=== PATIENT | male | born 1970 ===

== ENCOUNTER 2017-05-25 15:25 | Emergency (ER) | payer OTHER ==
[2017-05-25 15:51] VITALS: BP 135/85; PULSE 76; RESP 20; TEMP 98.3; O2SAT 100
--- NOTE | 2017-05-25 16:23 | ED PDOC ---
HPI: Wound Care - HPI Time Seen by Provider: 05/25/17 15:54 Chief Complaint (Nursing): Wound Check Chief Complaint (Provider): Dressing Change History Per: Patient History Of Present Illness: 46 year old male presents to the ED for a dressing change. The patient states that he had trigger finger surgery performed(done by Dr. Ray) on his right middle finger and was advised to change the dressing today. He states that e was unable to do so on his own as he only has 1 hand and so he came in to the ED. Patient offers no medical complaints. PMD: Non [facility] Provider, Exam Limitations: no limitations Location Of Injury: Right: Hand (middle finger) Past Medical History Reviewed: Historical Data, Nursing Documentation, Vital Signs Vital Signs: Last Vital Signs Temp 98.3 F 05/25/17 15:46 Pulse 76 05/25/17 15:46 Resp 20 05/25/17 15:46 BP 135/85 05/25/17 15:46 Pulse Ox 100 05/25/17 15:46 - Medical History PMH: Anxiety, Back Problems, Depression, Diabetes (Prediabetic), HTN, Sleep Apnea Denies: Hepatitis, HIV, Seizures, Sexually Transmitted Disease - Surgical History Surgical History: Appendectomy - Family History Family History: States: Unknown Family Hx, Hypertension - Social History Current smoker - smoking cessation education provided: Yes Ex-Smoker (has not smoked in the last 12 months): Yes - Immunization History Hx Tetanus Toxoid Vaccination: Yes (2012) Hx Influenza Vaccination: Yes (2013) Hx Pneumococcal Vaccination: No - Home Medications Home Medications: Ambulatory Orders Medication Instructions Recorded Lisinopril/Hydrochlorothiazide 1 tab PO DAILY 04/01/15 [Lisinopril-Hydrochlorothiazide 12.5 mg-10 mg] QUEtiapine [SEROquel] 50 mg PO HS 04/01/15 Lidocaine 5% [Lidoderm] 1 ea TD DAILY PRN #30 patch 05/03/16 Atomoxetine HCl [Strattera] 40 mg PO DAILY 05/04/16 Meloxicam [Mobic] 15 mg PO DAILY #20 tab 05/04/16 tiZANidine [Zanaflex] 4 mg PO TID #20 tab 05/04/16 Dicyclomine [Bentyl] 20 mg PO Q12 PRN #20 tab 06/13/16 - Allergies Allergies/Adverse Reactions: Allergies Allergy/AdvReac Type Severity Reaction Status Date / Time No Known Allergies Allergy Verified 06/13/16 19:47 Review of Systems Musculoskeletal: Positive for: Other (wound care at surgical site). Negative for: Arm Pain, Hand Pain Physical Exam - Reviewed Nursing Documentation Reviewed: Yes Vital Signs Reviewed: Yes - Physical Exam Appears: Positive for: Non-toxic, No Acute Distress Head Exam: Positive for: NORMAL INSPECTION Skin: Positive for: Normal Color, Warm, Dry. Negative for: Rash Extremity: Positive for: Normal ROM (Healing sutured wound on the palmar surface of right hand.), Other (no discharge from right hand.). Negative for: Swelling (no swelling to right hand) Neurologic/Psych: Positive for: Alert, Oriented, Gait - ECG O2 Sat by Pulse Oximetry: 100 (RA) Pulse Ox Interpretation: Normal Medical Decision Making Medical Decision Makin Initial Impression 46 y/o male presenting for wound care Initial Plan: * Reevaluation New sterile dressing placed to surgical site by YAMILEX. Documented by Marya Miller acting as a scribe for Henrique Yo PA-C. All medical record entries made by the Scribe were at my direction and personally dictated by me. I have reviewed the chart and agree that the record accurately reflects my personal performance of the history, physical exam, medical decision making, and the department course for this patient. I have also personally directed, reviewed, and agree with the discharge instructions and disposition. Disposition - Clinical Impression Clinical Impression: Visit for wound check - Patient ED Disposition Is Patient to be Admitted: No - Disposition Disposition: Routine/Home Disposition Time: 16:10 Condition: STABLE Additional Instructions: Follow up with your hand surgeon for further evaluation. Instructions: Acute Wound Care (ED) Forms: [facility] (Divehi) Print Language: PORTUGUESE - POA Present On Arrival: None
== END 2017-05-25 16:22 | disposition home or self-care (01) ==
LOC: H.ER 15:25
DX: Z51.89 Encounter for other specified aftercare (principal); I10 Essential (primary) hypertension; E11.9 Type 2 diabetes mellitus without complications; F17.200 Nicotine dependence, unspecified, uncomplicated

== ENCOUNTER 2018-06-22 19:40 | Emergency (ER) | payer OTHER ==
[2018-06-22 19:59] VITALS: BP 149/84; PULSE 62; RESP 18; TEMP 98.4; O2SAT 99
--- NOTE | 2018-06-22 21:02 | ED PDOC ---
HPI: Skin/Bite Injury Time Seen by Provider: 06/22/18 20:13 Chief Complaint (Nursing): Abnormal Skin Integrity Chief Complaint (Provider): Abnormal Skin Integrity History Per: Patient History/Exam Limitations: no limitations Onset/Duration Of Symptoms: Days Current Symptoms Are (Timing): Still Present Additional Complaint(s): 47 y/o male with a PMHx of ADHD and HTN presents to the ED for a medicine refill for a rash on the hands. Patient states he develops a rash on his hands every three months or so. Patient was last seen at [facility] ED for the same complaint and prescribed Clotrimazole/Betamethasone cream that resolved in two weeks. Patient began developing similar dryness for itching and cracked skin on the right hand about two weeks ago. Of note, patient has not seen a vascular ultrasound technologist for this problem. Otherwise, patient denies fever and chills. PMD: Sarika Miller Past Medical History Reviewed: Historical Data, Nursing Documentation, Vital Signs Vital Signs: Last Vital Signs Temp 98.4 F 06/22/18 19:56 Pulse 62 06/22/18 19:56 Resp 18 06/22/18 19:56 BP 149/84 06/22/18 19:56 Pulse Ox 99 06/22/18 19:56 - Medical History PMH: Anxiety, Back Problems, Depression, Diabetes (Prediabetic), HTN, Sleep Apnea Denies: Hepatitis, HIV, Seizures, Sexually Transmitted Disease - Surgical History Surgical History: Appendectomy - Family History Family History: States: Unknown Family Hx, Hypertension - Immunization History Hx Tetanus Toxoid Vaccination: Yes (2012) Hx Influenza Vaccination: Yes (2013) Hx Pneumococcal Vaccination: No - Home Medications Home Medications: Ambulatory Orders Medication Instructions Recorded Lisinopril/Hydrochlorothiazide 1 tab PO DAILY 04/01/15 [Lisinopril-Hydrochlorothiazide 12.5 mg-10 mg] QUEtiapine [SEROquel] 3 mg PO HS 04/01/15 Clotrimazole/Betamethasone 1 applic EXT BID #45 gra 02/09/18 [Lotrisone] Clotrimazole/Betamethasone 15 gm EXT BID 14 Days tube 06/22/18 [Lotrisone] - Allergies Allergies/Adverse Reactions: Allergies Allergy/AdvReac Type Severity Reaction Status Date / Time No Known Allergies Allergy Verified 06/13/16 19:47 Review of Systems ROS Statement: Except As Marked, All Systems Reviewed And Found Negative Constitutional: Positive for: Other (medicine refill) Physical Exam - Reviewed Nursing Documentation Reviewed: Yes Vital Signs Reviewed: Yes - Physical Exam Appears: Positive for: No Acute Distress Skin: Positive for: Rash (Scaly, whitish rash with some breaks noted to the right fourth and fifth digit along the both the palmar and dorsal aspect with clear demarcation. No papules, pustules or erythema. ) Pulses-Radial (L): 2+ Pulses-Radial (R): 2+ Extremity: Positive for: Capillary Refill (> 2 seconds), Other Neurologic/Psych: Positive for: Alert, Oriented - ECG O2 Sat by Pulse Oximetry: 99 (RA) Pulse Ox Interpretation: Normal Medical Decision Making Medical Decision Making: Time: 2058 Impression: Fungal skin rash vs. dyshidrotic eczema Plan: -- Patient given medication refill for Betamethasone/Clotrimazole cream. He is stable for discharge home and instructed to follow up with vascular ultrasound technologist or PMD for further management and evaluation. Scribe Attestation: Documented by Emy Torres, acting as a scribe Silas Frye PA-C. Provider Scribe Attestation: All medical record entries made by the Scribe were at my direction and personally dictated by me. I have reviewed the chart and agree that the record accurately reflects my personal performance of the history, physical exam, medical decision making, and the department course for this patient. I have also personally directed, reviewed, and agree with the discharge instructions and disposition. Disposition - Clinical Impression Clinical Impression: Rash of hands - Patient ED Disposition Is Patient to be Admitted: No Counseled Patient/Family Regarding: Studies Performed, Diagnosis, Need For Followup, Rx Given - Disposition Disposition: Routine/Home Disposition Time: 20:59 Condition: STABLE Additional Instructions: You are highly encouraged to follow up with a vascular ultrasound technologist or primary care doctor (Dr. Ruthann Saldivar) for further treatment of hand rash. Use cream until rash resolves. Prescriptions: Clotrimazole/Betamethasone [Lotrisone] 15 gm EXT BID 14 Days tube Instructions: Skin Rash (DC), Fungal Skin Rash (DC) Forms: [facility] (Italian) Print Language: KOREAN
== END 2018-06-22 20:59 | disposition home or self-care (01) ==
LOC: H.ER 19:40
DX: R21 Rash and other nonspecific skin eruption (principal)

== ENCOUNTER 2018-07-09 18:23 | Emergency (ER) | payer OTHER ==
[2018-07-09 18:52] VITALS: BP 145/81; PULSE 88; RESP 18; TEMP 98.7; O2SAT 97
--- NOTE | 2018-07-09 20:05 | ED PDOC ---
HPI: Skin/Bite Injury Time Seen by Provider: 07/09/18 19:12 Chief Complaint (Nursing): Med Refill Chief Complaint (Provider): Med Refill History Per: Patient History/Exam Limitations: no limitations Onset/Duration Of Symptoms: Days (x2 months) Location Of Injury: Right: Hand (second finger) Quality Of Symptoms: Painful, Itching Additional Complaint(s): 47 year old male presents to the ED with rash on right second finger onset 2 months. Patient reports slightly red, itchy scaly rash that flares up intermittently. Patient was initially seen at [facility], [place] and prescribed an antifungal clotrimazole-betamethasone, which he completed. Rash returned and he was evaluated in this ED on 06/22/18 and given the same cream. He finished the cream again and is here for another refill. PMD: Vashti Duran Past Medical History Reviewed: Historical Data, Nursing Documentation, Vital Signs Vital Signs: Last Vital Signs Temp 98.7 F 07/09/18 18:51 Pulse 88 07/09/18 18:51 Resp 18 07/09/18 18:51 BP 145/81 07/09/18 18:51 Pulse Ox 97 07/09/18 18:51 - Medical History PMH: Anxiety, Back Problems, Depression, Diabetes (Prediabetic), HTN, Sleep Apnea Denies: Hepatitis, HIV, Seizures, Sexually Transmitted Disease - Surgical History Surgical History: Appendectomy - Family History Family History: States: Unknown Family Hx, Hypertension - Immunization History Hx Tetanus Toxoid Vaccination: Yes (2012) Hx Influenza Vaccination: Yes (2013) Hx Pneumococcal Vaccination: No - Home Medications Home Medications: Ambulatory Orders Medication Instructions Recorded Lisinopril/Hydrochlorothiazide 1 tab PO DAILY 04/01/15 [Lisinopril-Hydrochlorothiazide 12.5 mg-10 mg] QUEtiapine [SEROquel] 3 mg PO HS 04/01/15 Clotrimazole/Betamethasone 1 applic EXT BID #45 gra 02/09/18 [Lotrisone] Clotrimazole/Betamethasone 15 gm EXT BID 14 Days tube 06/22/18 [Lotrisone] Clotrimazole 1% Cream [Lotrimin 1%] 1 % TP BID 5 Days cre 07/09/18 - Allergies Allergies/Adverse Reactions: Allergies Allergy/AdvReac Type Severity Reaction Status Date / Time No Known Allergies Allergy Verified 07/09/18 18:49 Review of Systems ROS Statement: Except As Marked, All Systems Reviewed And Found Negative Skin: Positive for: Rash (on finger) Physical Exam - Reviewed Nursing Documentation Reviewed: Yes Vital Signs Reviewed: Yes - Physical Exam Appears: Positive for: No Acute Distress Skin: Positive for: Rash (mild erythema with dry cracked skin to the right 2nd and 3rd digit, no suppurative infection, no fluctuance, no induration) Eye Exam: Positive for: Normal appearance Extremity: Positive for: Normal ROM (upper and lower) Neurological/Psych: Positive for: Awake, Alert, Oriented - ECG O2 Sat by Pulse Oximetry: 97 (RA) Pulse Ox Interpretation: Normal Medical Decision Making Medical Decision Making: Time: 1954 --Exam demonstrates no evidence of bacterial infection, will prescribe antifungal cream because it helped in the past. Strongly advised dermatology follow-up before further steroids are applied to are as he has frequently been treated with steroids Scribe Attestation: Documented by Nancy Bella acting as a scribe for Deandra Richardson PA-C. Provider Scribe Attestation: All medical record entries made by the Scribe were at my direction and personally dictated by me. I have reviewed the chart and agree that the record accurately reflects my personal performance of the history, physical exam, medical decision making, and the department course for this patient. I have also personally directed, reviewed, and agree with the discharge instructions and disposition. Disposition - Clinical Impression Clinical Impression: Rash - Patient ED Disposition Is Patient to be Admitted: No Counseled Patient/Family Regarding: Diagnosis, Rx Given - Disposition Referrals: [facility] [Outside] Disposition: Routine/Home Disposition Time: 20:11 Condition: STABLE Prescriptions: Clotrimazole 1% Cream [Lotrimin 1%] 1 % TP BID 5 Days cre Instructions: Skin Rash (DC), Fungal Skin Rash (DC) Forms: [facility] (Citizen [place])
== END 2018-07-09 20:45 | disposition home or self-care (01) ==
LOC: H.ER 18:23
DX: R21 Rash and other nonspecific skin eruption (principal)